=== PATIENT | female | born 1980 | race Caucasian/White ===

== ENCOUNTER → 2016-11-07 | Outpatient (CLI) | payer OTHER ==
[~2016-11-07] MED LIST: AMOXICILLIN875 MG PO; NO MEDICATIONS; PREDNISONE
--- NOTE | ~2016-11-07 | CR181 ---
[facility] A Service of [facility] RADIOLOGY TEXT RESULTS PATIENT: MITESH RAINEY LOCATION: [facility] : 84 UNIT #: [id number] AGE: [address]: Kendall Ervin MD SEX: F ORDER DR: [id number] [place] [id number] O MR#: [id number] Acc #: [id number] NAME: MITESH RAINEY : 1980 SEX: F STUDY DATE/TIME: 11/07/2016 9:20 UNIT: [facility] ROOM: STUDY DESCRIPTION: CR Lumbar Spine 2 or 3 Views Attending Physician: Kendall Ervin M.D. Referring Physician: Kendall Ervin M.D. Ordering Physician: Kendall Ervin M.D. Primary Care Physician: Kendall Ervin M.D. MEDICAL IMAGING REPORT This report is preliminary unless electronic signature is present. EXAM Lumbar spine, 11/07. INDICATIONS Low back pain for 3 years. No trauma. FINDINGS Three views of the lumbar spine were obtained. No fracture or subluxation is seen. There is some disc space narrowing and endplate spurring at L3-4. Exam is otherwise negative. IMPRESSION Degenerative disc disease at L3-4, otherwise, negative. Dictated by... Monty Klein Jr., M.D. THIS IS AN ELECTRONICALLY VERIFIED REPORT Monty Klein Jr., M.D. at 11/08/2016 8:29 AM MA[facility] TD: 11/07/2016 23:00 JOB #: [id number] MEDICAL IMAGING REPORT Page 1 of 1
== END | disposition home or self-care (01) ==
LOC: SRAD 09:07
DX: M54.5 Low back pain (principal); M51.36 Other intervertebral disc degeneration, lumbar region
CPT/HCPCS: 72100